=== PATIENT | female | born 1935 | race Caucasian/White ===

== ENCOUNTER 2016-09-27 12:49 | Outpatient (CLI) ==
--- NOTE | 2016-09-27 14:57 | DEXA ---
Examination: Bone density DEXA scan. TECHNIQUE: Imaging was performed on [facility]. The lumbar spine was not performed secondary to back surgeries. Reason for study: Menopause. Comparison: 03/08/2013. FINDINGS: DEXA scan of the hips was performed with adequate quality. The total mean BMD measures 0.795 grams per square centimeter. The total T-score measures -1.7. The total Z-score measures 0.5. The change versus previous equals -0.040 grams per square centimeter and -4.8%. Impression: According to the world Health Organization a T-score of -1.7 is considered osteopenia. Dual femur FRAX 10-year probability of fracture: The major osteoporotic 13.6%. Hip 4.3%.
--- NOTE | 2016-09-29 08:55 | MAMMO ---
EXAM: Digital screening mammogram HISTORY: Screening COMPARISON: 09/11/2014 FINDINGS: Digital MLO and CC views of the right and left breast were performed. There are scatter ed fibroglandular densities. There is no evidence for mass, asymmetry, distortion, or suspicious ca lcifications in either breast. IMPRESSION: 1. No evidence of malignancy in the right or left breast. 2. Annual screening mammogram is recommended in one year. BIRADS category 1, negative examination
== END 2016-09-27 12:50 | disposition home or self-care (01) ==
LOC: RAD 12:49
PROVIDERS: ATTEND Family Medicine
DX: Z12.31 Encounter for screening mammogram for malignant neoplasm of breast (principal); Z78.0 Asymptomatic menopausal state

== ENCOUNTER 2018-06-14 12:49 | Outpatient (CLI) | END 2018-06-14 12:50 | disposition home or self-care (01) | LOC: RAD 12:49 | PROVIDERS: ATTEND Family Medicine | DX: Z12.31 Encounter for screening mammogram for malignant neoplasm of breast (principal) ==